=== PATIENT | male | born 1985 | race Two or more races ===

== ENCOUNTER 2018-11-28 21:07 | Emergency (ER) | payer MEDICAID ==
[~2018-11-28] VITALS: Ht 182.9 cm; Wt 85.2 kg
[2018-11-28 21:25] VITALS: BP 139/86
== END 2018-11-28 23:26 | disposition home or self-care (01) ==
LOC: ER 21:08
DX: S06.0X9A Concussion with loss of consciousness of unspecified duration, initial encounter (principal); F15.10 Other stimulant abuse, uncomplicated; F17.200 Nicotine dependence, unspecified, uncomplicated; Z56.0 Unemployment, unspecified; Y35.93XA Legal intervention, means unspecified, suspect injured, initial encounter; Y93.89 Activity, other specified; Y92.89 Other specified places as the place of occurrence of the external cause; Y99.8 Other external cause status
CPT/HCPCS: 99281

== ENCOUNTER 2019-04-07 15:59 | Emergency (ER) | payer MEDICAID, OTHER ==
[~2019-04-07] VITALS: Ht 182.9 cm; Wt 90.0 kg
[2019-04-07 16:02] VITALS: BP 128/88
[2019-04-07] MEDS ORDERED: ibuprofen tablet 400 MG TABLET PO ONE (16:50)
== END 2019-04-07 17:38 | disposition home or self-care (01) ==
LOC: ER 16:00
DX: S60.221A Contusion of right hand, initial encounter (principal); F15.90 Other stimulant use, unspecified, uncomplicated; Z60.2 Problems related to living alone; Z56.0 Unemployment, unspecified; W01.10XA Fall on same level from slipping, tripping and stumbling with subsequent striking against unspecified object, initial encounter; Y93.89 Activity, other specified; Y92.89 Other specified places as the place of occurrence of the external cause; Y99.8 Other external cause status
CPT/HCPCS: 73130; 99284

== ENCOUNTER 2019-05-30 20:51 | Emergency (ER) | payer MEDICAID ==
[~2019-05-30] VITALS: Ht 185.4 cm; Wt 90.9 kg
[2019-05-30 21:59] VITALS: BP 108/66
== END 2019-05-30 22:05 ==
LOC: ER 20:51
DX: S06.0X9A Concussion with loss of consciousness of unspecified duration, initial encounter (principal); S00.81XA Abrasion of other part of head, initial encounter; F15.90 Other stimulant use, unspecified, uncomplicated; Z60.2 Problems related to living alone; Z56.0 Unemployment, unspecified; W01.0XXA Fall on same level from slipping, tripping and stumbling without subsequent striking against object, initial encounter; Y93.89 Activity, other specified; Y92.89 Other specified places as the place of occurrence of the external cause; Y99.8 Other external cause status
CPT/HCPCS: 70450; 72125; 99284

== ENCOUNTER 2021-03-06 23:05 | Emergency (ER) | payer MEDICAID ==
[~2021-03-06] VITALS: Ht 182.9 cm; Wt 86.0 kg
[2021-03-06 23:12] VITALS: BP 140/99
[2021-03-06 23:35] LABS: CLARITY,URINE CLEAR (Clear); COLOR,URINE AMBER (Yellow); GLUCOSE, URINE NEGATIVE (Neg); KETONES,URINE TRACE mg/dl (Neg); LEUKOCYTE ESTERASE ,URINE NEGATIVE (Neg); NITRITES, URINE NEGATIVE (Neg); OCCULT BLOOD,URINE NEGATIVE (Neg); PH,URINE 6.5 (4.8-8.0); PROTEIN,URINE NEGATIVE (Neg); UROBILINOGEN,URINE 0.2 E.U/dL (0.2-1.0)
[2021-03-06 23:36] LABS: UA COLLECTION TYPE CLN CATCH MIDSTREAM
[2021-03-06] MEDS ORDERED: CEFTRIAXONE 500 MG VIAL IM ONE (23:50)
[2021-03-06] MEDS ORDERED: penicillin G benzathine 1.2 million unit/2ml syringe IM ONE (23:50)
[2021-03-06] MEDS ORDERED: azithromycin 250mg tablet PO ONE (23:50)
[2021-03-06] MEDS ORDERED: CefTRIAXone 1000mg IM Kit (w/lidocaine diluent) IM ONE (23:55)
[2021-03-07] MEDS ORDERED: PENICILLIN G BENZATHINE 2,400,000 UNIT/4 ML SYRINGE IM ONE (00:05)
== END 2021-03-07 00:13 | disposition home or self-care (01) ==
LOC: ER 23:06
DX: N50.812 Left testicular pain (principal); A64 Unspecified sexually transmitted disease; R30.0 Dysuria; F15.90 Other stimulant use, unspecified, uncomplicated; Z60.2 Problems related to living alone; Z56.0 Unemployment, unspecified
CPT/HCPCS: 81003; 96372; 99284; J0561; J0696; 90471

== ENCOUNTER 2021-04-09 15:40 | Emergency (ER) | payer MEDICAID ==
[~2021-04-09] VITALS: Ht 182.9 cm; Wt 98.5 kg
[2021-04-09 15:57] VITALS: BP 144/86
[2021-04-09] MEDS ORDERED: LIDOcaine 1% W/epiNEPHrine 1:200,000 10ml vial IJ ONE (20:00)
[2021-04-09] MEDS ORDERED: AMOX-422 PO (21:38)
[2021-04-09] MEDS ORDERED: HYDROcodone/acetaminophen 10/325mg tab PO ONE (21:50)
== END 2021-04-09 21:55 | disposition home or self-care (01) ==
LOC: ER 15:41
DX: S61.411A Laceration without foreign body of right hand, initial encounter (principal); F15.10 Other stimulant abuse, uncomplicated; Z56.0 Unemployment, unspecified; W54.0XXA Bitten by dog, initial encounter; Y93.89 Activity, other specified; Y92.89 Other specified places as the place of occurrence of the external cause; Y99.8 Other external cause status
CPT/HCPCS: 12001; 73130; 99283